=== PATIENT | female | born 1985 | race Caucasian/White ===

== ENCOUNTER 2017-04-09 14:32 | Emergency (ER) | payer OTHER ==
[~2017-04-09] VITALS: Wt 85.0 kg
[~2017-04-09 14:32] MED LIST: ALB.5NB20; AZIT250T94 PO; BECL8.7A; D ME PO; FLUT9.9S NASAL; MONT5TAB12 PO
[2017-04-09] MEDS ORDERED: KETOROLAC 60 MG INJ IM STA (15:02)
[2017-04-09] MEDS ORDERED: ONDANSETRON (ODT) 4 MG TAB ODT STA (15:02)
[2017-04-09] MEDS ORDERED: IBUP-1542 PO (15:37)
[2017-04-09] MEDS ORDERED: BENZ100C70 PO (15:37)
[2017-04-09] MEDS ORDERED: ONDA4TAB14 PO (15:37)
[2017-04-09] MEDS ORDERED: ACET1TAB40 PO (15:58)
--- NOTE | 2017-04-09 16:19 | ERD ---
ER Documentation Chief Complaint Date/Time DATE: 04/09/17 TIME: 16:16 Chief Complaint NAUSEA, BODYACHES, NO VOMITING OR DIARRHEA HPI 31-year-old female patient with no significant past medical history presents to the ED complaining of nausea, chills, fever, few episodes of nonmucoid nonbloody diarrhea, one episode of 9 bilious nonbloody vomiting. Reports that she may have eaten some tacos 3 days ago that made her feel sick. States that she also has a dry cough which she has been taking DayQuil and NyQuil. Denies any chest pain, shortness of breath, wheezing, abdominal pain. ROS All systems reviewed and are negative except as per history of present illness. Medications Home Meds Active Scripts Acetaminophen with Codeine (Acetaminophen-Cod #3 Tablet) 1 Each Tablet, 1 TAB PO QHS Y for PAIN, #6 TAB Prov:FANY GRAJEDA PA-C 04/09/17 Ondansetron (Ondansetron Odt) 4 Mg Tab.rapdis, 4 MG PO Q6H Y for NAUSEA AND/OR VOMITING, #10 TAB Prov:FANY GRAJEDA PA-C 04/09/17 D-Methorphan/PE/Acetaminophen (Tylenol Cold Max Day Caplet) 1 Each Tablet, 1 EACH PO QID for 4 Days, #15 TAB Prov:MARJ LEYVA MD 05/30/16 Fluticasone Propionate (Flonase Allergy Relief) 9.9 Ml [place].susp, 1 SPRAY NASAL DAILY, #1 BOTTLE TO EACH NOSTRIL Prov:MARJ LEYVA MD 05/30/16 Azithromycin* (Zithromax*) 250 Mg Tablet, 250 MG PO .ZPACK DIRECTED, #6 TAB TAKE 500 MG (2 TABS) THE FIRST DAY THEN 250 MG (1 TAB) DAYS 2-5 Prov:MARJ LEYVA MD 05/30/16 Reported Medications Albuterol Sulfate* (Albuterol Sulfate* Neb) 20 Ml Nebu, PRN 09/01/11 Beclomethasone Dip* (Qvar 40*) 7.3 Gm Inha 09/01/11 Montelukast Sodium* (Singulair*) 5 Mg Tab.chew, 5 MG PO DAILY 09/01/11 Allergies Allergies: Coded Allergies: No Known Allergies (Verified Allergy, Unknown, 05/09/14) PMhx/Soc History of Surgery: No Anesthesia Reaction: No Hx Neurological Disorder: No Hx Respiratory Disorders: No Hx Cardiac Disorders: No Hx Psychiatric Problems: No Hx Miscellaneous Medical Probl: No Hx Alcohol Use: No Hx Substance Use: No Hx Tobacco Use: No Smoking Status: Never smoker Physical Exam Vitals Vital Signs Date Time Temp Pulse Resp B/P Pulse Ox O2 Delivery O2 Flow Rate FiO2 04/09/17 14:34 99.5 107 18 109/75 98 Physical Exam Const: [id number]-[id number], well-nourished. In no acute distress. Head: Atraumatic, normocephalic Eyes: Normal Conjunctiva without injection. No purulent discharge. PERRLA. EOMI ENT: Normal external ear. Ear canal without erythema. Tympanic membrane pearly moran without effusion or bulging. Nasal canal clear with normal turbinates. Moist oropharynx without tonsillar exudates. Non-erythematous pharynx. Uvula midline. No drooling. No trismus. Neck: No cervical midline tenderness. Full range of motion. No meningismus. No cervical lymphadenopathy. No JVD. Resp: Clear to auscultation bilaterally. No wheezing, rhonchi, rales, or crackles. No accessory muscle use. No retractions. Cardio: Regular rate and rhythm. No murmurs, rubs or gallops. Abd: Soft, non tender, non distended. Normal bowel sounds. No palpable masses. No rebound tenderness. No guarding. Negative McBurney's Point. Negative Wiley's Sign. Skin: Normal skin turgor. No petechiae or rashes Back: No midline tenderness. No CVA tenderness. Ext: No cyanosis, or edema. Distal pulses intact bilaterally. Neur: Awake and alert. Normal gait. Normal coordination. Cranial Nerves II- VII intact. Psych: Normal Mood and Affect Results 24 hrs Current Medications Medications (Trade) Dose Ordered Sig/Yuri Route PRN Reason Start Time Stop Time Status Last Admin Dose Admin Ketorolac Tromethamine (Toradol) 60 mg ONCE STAT IM 04/09/17 15:02 04/09/17 15:04 DC 04/09/17 15:10 Ondansetron HCl (Zofran Odt) 4 mg ONCE STAT ODT 04/09/17 15:02 04/09/17 15:04 DC 04/09/17 15:10 Procedures/MDM This is a 29-year-old female patient with no sniffing a past medical history presents the ED complaining of body aches, nausea, one episode of nonbilious nonbloody vomiting, 4 episodes of nonmucoid nonbloody diarrhea, cough, sore throat. Patient is afebrile and nontoxic-appearing. Patient has normal vital signs. Patient symptoms are likely due to viral etiology. Patient was given Zofran, Toradol here in the ED with improvement of her symptoms. Urine negative. This patient presents to the ED with symptoms consistent with a viral etiology. Patient is afebrile and has normal vital signs. Patient 's physical exam include lungs which were clear to auscultation and a normal pulse oximetry. There is a low suspicion for pneumonia, pneumothorax, mononucleosis, pulmonary embolism, epiglottitis, otitis media, otitis externa, viral/strep pharyngitis, sinusitis, peritonsillar abscess, mastoiditis, retropharyngeal abscess, meningitis, sepsis, acute abdomen or other emergent conditions. Fluids, rest, and symptomatic treatment are recommended for the management of patient's symptoms. Discharge medications: Tylenol with codeine, Zofran Patient was instructed to return to the ED for any new or worsening symptoms. They should otherwise follow up with the primary care provider within 1-2 days. The patient's questions were answered at the time of discharge. Patient understood and agreed with discharge management. Departure Diagnosis: Primary Impression: Cough Additional Impressions: Diarrhea Diarrhea type: unspecified type Qualified Code: R19.7 - Diarrhea, unspecified type Vomiting Vomiting type: unspecified Vomiting Intractability: unspecified Nausea presence: unspecified Qualified Code: R11.10 - Vomiting, intractability of vomiting not specified, presence of nausea not specified, unspecified vomiting type Sore throat Condition: Stable Patient Instructions: When You Have a Sore Throat, Self-Care for Vomiting and Diarrhea, Viral Syndrome (Adult) Referrals: COMMUNITY CLINICS YOU HAVE RECEIVED A MEDICAL SCREENING EXAM AND THE RESULTS INDICATE THAT YOU DO NOT HAVE A CONDITION THAT REQUIRES URGENT TREATMENT IN THE EMERGENCY DEPARTMENT. FURTHER EVALUATION AND TREATMENT OF YOUR CONDITION CAN WAIT UNTIL YOU ARE SEEN IN YOUR DOCTORS OFFICE WITHIN THE NEXT 1-2 DAYS. IT IS YOUR RESPONSIBILITY TO MAKE AN APPOINTMENT FOR RINA-UP CARE. IF YOU HAVE A PRIMARY DOCTOR --you should call your primary doctor and schedule an appointment IF YOU DO NOT HAVE A PRIMARY DOCTOR YOU CAN CALL OUR PHYSICIAN REFERRAL HOTLINE AT IF YOU CAN NOT AFFORD TO SEE A PHYSICIAN YOU CAN CHOSE FROM THE FOLLOWING [facility] [address] [facility] [address] [facility] [address] [facility] [address] [facility] [address] [facility]. [facility] [address] [facility]. [facility] YOU HAVE RECEIVED A MEDICAL SCREENING EXAM AND THE RESULTS INDICATE THAT YOU DO NOT HAVE A CONDITION THAT REQUIRES URGENT TREATMENT IN THE EMERGENCY DEPARTMENT. FURTHER EVALUATION AND TREATMENT OF YOUR CONDITION CAN WAIT UNTIL YOU ARE SEEN IN YOUR DOCTORS OFFICE WITHIN THE NEXT 1-2 DAYS. IT IS YOUR RESPONSIBILITY TO MAKE AN APPOINTMENT FOR FOLOW-UP CARE. IF YOU HAVE A PRIMARY DOCTOR --you should call your primary doctor and schedule and appointment IF YOU DO NOT HAVE A PRIMARY DOCTOR YOU CAN CALL OUR PHYSICIAN REFERRAL HOTLINE AT . IF YOU CAN NOT AFFORD TO SEE A PHYSICIAN YOU CAN CHOSE FROM THE FOLLOWING [facility] INSTITUTIONS: [facility] [address] [place] [address] [facility] [address] [place] [address] MERGED WITH [facility] [address] [place] [address] [facility] URGENT CARE/SPECIALTIES Additional Instructions: Call your primary care doctor TOMORROW for an appointment during the next 1-2 days.See the doctor sooner or return here if your condition worsens before your appointment time. FANY GRAJEDA PA-C Apr 09, 2017 16:19
== END 2017-04-09 15:58 | disposition home or self-care (01) ==
LOC: FTE 14:32
DX: R05 Cough (principal); R11.10 Vomiting, unspecified; R19.7 Diarrhea, unspecified; J02.9 Acute pharyngitis, unspecified
CPT/HCPCS: 96372; J1885; Z7502; Z7610

== ENCOUNTER 2018-12-18 20:35 | Emergency (ER) | payer OTHER ==
[~2018-12-18] VITALS: Ht 160 cm; Wt 77.1 kg
[~2018-12-18 20:35] MED LIST changes: +ACET1TAB40 PO; +AZIT250T PO; -AZIT250T94 PO; -MONT5TAB12 PO; +MONT5TAB13 PO; +ONDA4TAB14 PO
[2018-12-18 20:51] VITALS: Ht 160 cm; Wt 77.1 kg
[2018-12-18] MEDS ORDERED: MUPI22OI2 TOP (22:34)
[2018-12-18] MEDS ORDERED: CEPH-443 PO (22:34)
[2018-12-18] MEDS ORDERED: NAPR-985 PO (22:34)
[2018-12-18 22:45] VITALS: BP 113/78; PULSE 74; RESP 18
--- NOTE | 2018-12-19 00:13 | ERD ---
ER Documentation Chief Complaint Chief Complaint LUMP ON UPPER LEFT THIGH X'S 1 WEEK HPI History of Present Illness: 33-year-old female with no past medical history coming in today with complaint of "tender lump" to left inner thigh that has been present for 1 week. Patient reports increase in size and pain over the past week. Patient denies any other associated symptoms. Patient denies any type of systemic signs of infection. "I think it is a ingrown hair" At home pharmacological/nonpharmacological treatment for symptoms: Denies Denies social concerns; Denies recent foreign travel ROS All systems reviewed and are negative except as per history of present illness. Medications Home Meds Active Scripts Naproxen* (Naprosyn*) 500 Mg Tablet, 500 MG PO BID PRN for PAIN AND/OR INFLAMMATION, #30 TAB Prov:INGA DUNHAM NP 12/18/18 Cephalexin* (Keflex*) 500 Mg Capsule, 500 MG PO QID for skin infection for 7 Days, CAP Prov:INGA DUNHAM NP 12/18/18 Mupirocin* (Bactroban*) 2% -22 Gram Oint...g., 1 APPLIC TOP BID for skin infection for 7 Days, EA Prov:INGA DUNHAM NP 12/18/18 Acetaminophen with Codeine (Acetaminophen-Cod #3 Tablet) 1 Each Tablet, 1 TAB PO QHS PRN for PAIN, #6 TAB Prov:FANY GRAJEDA PA-C 04/09/17 Ondansetron (Ondansetron Odt) 4 Mg Tab.rapdis, 4 MG PO Q6H PRN for NAUSEA AND/OR VOMITING, #10 TAB Prov:FANY GRAJEDA PA-C 04/09/17 D-Methorphan/PE/Acetaminophen (Tylenol Cold Max Day Caplet) 1 Each Tablet, 1 EACH PO QID for 4 Days, #15 TAB Prov:MARJ LEYVA MD 05/30/16 Fluticasone Propionate (Flonase Allergy Relief) 9.9 Ml [place].susp, 1 SPRAY NASAL DAILY, #1 BOTTLE TO EACH NOSTRIL Prov:MARJ LEYVA MD 05/30/16 Azithromycin* (Zithromax*) 250 Mg Tablet, 250 MG PO .ZPACK DIRECTED, #6 TAB TAKE 500 MG (2 TABS) THE FIRST DAY THEN 250 MG (1 TAB) DAYS 2-5 Prov:MARJ LEYVA MD 05/30/16 Reported Medications Albuterol Sulfate* (Albuterol Sulfate* Neb) 20 Ml Nebu, PRN 09/01/11 Beclomethasone Dip* (Qvar 40*) 7.3 Gm Inha 09/01/11 Montelukast Sodium* (Singulair*) 5 Mg Tab.chew, 5 MG PO DAILY 09/01/11 Allergies Allergies: Coded Allergies: No Known Allergies (Verified Allergy, Unknown, 05/09/14) PMhx/Soc Medical and Surgical Hx: pt denies Medical Hx, pt denies Surgical Hx History of Surgery: No Anesthesia Reaction: No Hx Neurological Disorder: No Hx Respiratory Disorders: No Hx Cardiac Disorders: No Hx Psychiatric Problems: No Hx Miscellaneous Medical Probl: No Hx Alcohol Use: No Hx Substance Use: No Hx Tobacco Use: No Smoking Status: Never smoker FmHx Family History: No diabetes, No coronary disease Physical Exam Vitals Vital Signs Date Temp Pulse Resp B/P (MAP) Pulse Ox O2 O2 Flow FiO2 Time Delivery Rate 12/18/18 74 18 113/78 99 22:45 (90) 12/18/18 97.8 80 18 105/74 99 20:51 (84) Physical Exam Const: No acute distress Head: Atraumatic Eyes: Normal Conjunctiva ENT: Normal External Ears, Nose and Mouth. Neck: Full range of motion. No meningismus. Resp: Clear to auscultation bilaterally Cardio: Regular rate and rhythm, no murmurs Abd: Soft, non tender, non distended. Normal bowel sounds Skin: No petechiae or rashes; palpable abscess noted to left inner thigh, approximately 2 cm induration, no fluctuance, no streaking, no surrounding cellulitis, tenderness to palpation on examination Back: No midline or flank tenderness Ext: No cyanosis, or edema Neur: Awake and alert Psych: Normal Mood and Affect Procedures/MDM ED course includes a thorough examination and history. Medications: -- Imaging: -- Labs: -- Low suspicion for life-threatening medical emergency. Low suspicion for infectious emergency that requires hospitalization. incision and drainage not indicated at this time. Otherwise healthy patient presenting with constellation of symptoms likely representing uncomplicated abscess as characterized by history, physical exam findings. No respiratory distress, otherwise relatively well appearing and nontoxic. Patient educated on diagnoses, prescriptions, follow-up care, return precautions. Strict return precautions given for worsening condition; questions answered discharge. Disposition for discharge with followup in 2 days with PCP/clinic. Departure Diagnosis: Primary Impression: Skin abscess Site of cutaneous abscess: extremity Site of cutaneous abscess of extremity: lower extremity Laterality: left Qualified Codes: L02.416 - Cutaneous abscess of left lower limb Condition: Stable Patient Instructions: Abscess, Antiobiotic Treatment Only Referrals: [facility] YOU HAVE RECEIVED A MEDICAL SCREENING EXAM AND THE RESULTS INDICATE THAT YOU DO NOT HAVE A CONDITION THAT REQUIRES URGENT TREATMENT IN THE EMERGENCY DEPARTMENT. FURTHER EVALUATION AND TREATMENT OF YOUR CONDITION CAN WAIT UNTIL YOU ARE SEEN IN YOUR DOCTORS OFFICE WITHIN THE NEXT 1-2 DAYS. IT IS YOUR RESPONSIBILITY TO MAKE AN APPOINTMENT FOR FOLOW-UP CARE. IF YOU HAVE A PRIMARY DOCTOR --you should call your primary doctor and schedule an appointment IF YOU DO NOT HAVE A PRIMARY DOCTOR YOU CAN CALL OUR PHYSICIAN REFERRAL HOTLINE AT IF YOU CAN NOT AFFORD TO SEE A PHYSICIAN YOU CAN CHOSE FROM THE FOLLOWING [facility] [address] [facility]. [facility] [address] [facility] [address] [facility] [address] [facility] [address] [facility] [address] [facility]. [facility] YOU HAVE RECEIVED A MEDICAL SCREENING EXAM AND THE RESULTS INDICATE THAT YOU DO NOT HAVE A CONDITION THAT REQUIRES URGENT TREATMENT IN THE EMERGENCY DEPARTMENT. FURTHER EVALUATION AND TREATMENT OF YOUR CONDITION CAN WAIT UNTIL YOU ARE SEEN IN YOUR DOCTORS OFFICE WITHIN THE NEXT 1-2 DAYS. IT IS YOUR RESPONSIBILITY TO MAKE AN APPOINTMENT FOR FOLOW-UP CARE. IF YOU HAVE A PRIMARY DOCTOR --you should call your primary doctor and schedule and appointment IF YOU DO NOT HAVE A PRIMARY DOCTOR YOU CAN CALL OUR PHYSICIAN REFERRAL HOTLINE AT . IF YOU CAN NOT AFFORD TO SEE A PHYSICIAN YOU CAN CHOSE FROM THE FOLLOWING [facility] INSTITUTIONS: [facility] [address] [place] [address] [facility] [address] [place] [address] [facility] [address] [place] [address] Additional Instructions: Thank you very much for allowing us to participate in your care. Your health and safety is our top priority at [facility]. It is important to read all discharge instructions and education provided in your discharge packet. Call your primary care doctor TOMORROW for an appointment during the next 2-4 days and bring all the information and medications prescribed. Have prescriptions filled and follow precisely the directions on the label. -Keflex is an antibiotic; take this medication every day every 6 hours as listed on your prescription. You must complete the entire course of treatment that is listed on your prescription this is very important because it takes a certain number of days to kill the bacteria that is causing the infection. -Bactroban ointment as an antibiotic; take this medication every day every 12 hours as listed on your prescription. You must complete the entire course of treatment that is listed on your prescription this is very important because it takes a certain number of days to kill the bacteria that is causing the infection. -Naproxen is a anti-inflammatory pain medication; take this medication as needed for pain and inflammation/swelling If the symptoms get worse and your provider is unavailable, return to the Emergency Department immediately. INGA DUNHAM NP Dec 19, 2018 00:13
== END 2018-12-18 22:49 | disposition home or self-care (01) ==
LOC: FTE 20:35
DX: L02.416 Cutaneous abscess of left lower limb (principal)
CPT/HCPCS: 99283